=== PATIENT | male | born 1935 | race Caucasian/White ===

== ENCOUNTER 2020-05-05 09:07 | Emergency (ER) | payer MEDICARE, OTHER ==
[~2020-05-05] VITALS: Ht 167.6 cm; Wt 104.0 kg
[~2020-05-05 09:07] MED LIST: ACET325T9 PO; AMLO5TAB4 PO; BUSP5TAB PO; CHOL40003 PO; DIVA250T PO; LINE600T12 PO; OLAN10TA3 PO; VIT1TABL71 PO
--- NOTE | 2020-05-05 09:26 | PHYS DOC ---
Past Medical History Past Medical History: COPD Past Medical History schizophrenia Smoking Status: Light Tobacco Smoker Alcohol Use: None General Adult EDM: Chief Complaint: MECHANICAL FALL HPI: HPI: Patient is a 84 year old male who presents with a mechanical fall and right knee pain. Patient had a fall going down a ramp and lost his balance. Patient had injury to the right knee. Patient denies any head or having loss of consciousness. Patient describes mild pain in the left knee that is nonradiating worse with palpation. Patient did have a fall yesterday as well. Patient sent in from his living facility for 2 falls in the last day. Patient denies any fever, chills, vomiting, diarrhea or cough, shortness of breath or chest pain Review of Systems: Review of Systems: Constitutional: Denies fever or chills. [] Eyes: Denies change in visual acuity. [] HENT: Denies nasal congestion or sore throat. [] Respiratory: Denies cough or shortness of breath. [] Cardiovascular: Denies chest pain or edema. [] GI: Denies abdominal pain, nausea, vomiting, bloody stools or diarrhea. [] : Denies dysuria. [] Musculoskeletal: Denies back pain complains of right knee pain Integument: Denies rash. [] Neurologic: Denies headache, focal weakness or sensory changes. [] Endocrine: Denies polyuria or polydipsia. [] Lymphatic: Denies swollen glands. [] Psychiatric: Denies depression or anxiety. [] Heart Score: Risk Factors: Risk Factors: DM, Current or recent (<one month) smoker, HTN, HLP, family hi story of CAD, obesity. Risk Scores: Score 0 - 3: 2.5% MACE over next 6 weeks - Discharge Home Score 4 - 6: 20.3% MACE over next 6 weeks - Admit for Clinical Observation Score 7 - 10: 72.7% MACE over next 6 weeks - Early Invasive Strategies Allergies: Allergies: Allergies Coded Allergies Type Severity Reaction Last Updated Verified No Known Drug Allergies 11/29/19 No Physical Exam: PE: Constitutional: Well developed, well nourished, no acute distress, non-toxic appearance. [] HENT: Normocephalic, atraumatic, bilateral external ears normal, mucous membranes moist, no trismus, nose normal. [] Eyes: PERRLA, EOMI, conjunctiva normal, no discharge. [] Neck: Normal range of motion, no tenderness, supple, no stridor. [] Cardiovascular:Heart rate regular rhythm, peripheral pulses intact, cap refill brisk Lungs & Thorax: Bilateral breath sounds clear, no respiratory distress Abdomen: Bowel sounds normal, soft, no tenderness, no masses, no pulsatile masses. [] Skin: Warm, dry, no erythema, no rash. [] Back: No tenderness, no CVA tenderness. [] Extremities: Mild tenderness to the right knee no cyanosis, no clubbing, ROM intact, no edema. [] Neurologic: Alert and oriented X 3, normal motor function, normal sensory function, no focal deficits noted. [] Psychologic: Affect normal, judgement normal, mood normal. [] Current Patient Data: Labs: Laboratory Tests Test 05/05/20 09:40 White Blood Count 5.6 x10^3/uL Red Blood Count 4.25 x10^6/uL Hemoglobin 13.7 g/dL Hematocrit 40.3 % Mean Corpuscular Volume 95 fL Mean Corpuscular Hemoglobin 32 pg Mean Corpuscular Hemoglobin Concent 34 g/dL Red Cell Distribution Width 14.5 % Platelet Count 137 x10^3/uL Neutrophils (%) (Auto) 61 % Lymphocytes (%) (Auto) 24 % Monocytes (%) (Auto) 10 % Eosinophils (%) (Auto) 4 % Basophils (%) (Auto) 1 % Neutrophils # (Auto) 3.4 x10^3/uL Lymphocytes # (Auto) 1.3 x10^3/uL Monocytes # (Auto) 0.5 x10^3/uL Eosinophils # (Auto) 0.2 x10^3/uL Basophils # (Auto) 0.1 x10^3/uL Urine Collection Type Unknown Urine Color Yellow Urine Clarity Clear Urine pH 7.0 Urine Specific [place] 1.020 Urine Protein Negative mg/dL Urine Glucose (UA) Negative mg/dL Urine Ketones (Stick) Negative mg/dL Urine Blood Negative Urine Nitrite Negative Urine Bilirubin Negative Urine Urobilinogen Dipstick 1.0 mg/dL Urine Leukocyte Esterase Negative Urine RBC 3-5 /HPF Urine WBC 1-4 /HPF Urine Squamous Epithelial Cells Few /LPF Urine Amorphous Sediment Present /HPF Urine Bacteria 0 /HPF Urine Mucus Mod /LPF Sodium Level 145 mmol/L Potassium Level 4.1 mmol/L Chloride Level 108 mmol/L Carbon Dioxide Level 29 mmol/L Anion Gap 8 Blood Urea Nitrogen 18 mg/dL Creatinine 1.4 mg/dL Estimated GFR (Cockcroft-Gault) 48.3 Glucose Level 102 mg/dL Calcium Level 8.0 mg/dL Troponin I Quantitative < 0.017 ng/mL Vital Signs: Vital Signs Date Time Temp Pulse Resp B/P (MAP) Pulse Ox O2 Delivery O2 Flow Rate FiO2 05/05/20 10:42 68 94 05/05/20 09:42 78 93 05/05/20 09:16 98.0 94 20 138/80 (99) 98 Room Air 98.0 EKG: EKG: [] EKG interpreted by [facility] sinus rhythm with a rate of 70 left axis deviation normal intervals nonspecific ST changes Radiology/Procedures: Radiology/Procedures: [][facility] [address] [place] [address] IMAGING REPORT Signed PATIENT: JAZIEL CHEATHAM ACCOUNT: [id number] : 1935 LOCATION: ER AGE: 84 SEX: M EXAM STATUS: PRE ER ORD. PHYSICIAN: TANYA BENITEZ MD REASON: fall PROCEDURE: PORTABLE CHEST 1V EXAM: Chest, single view; pelvis and right hip, 3 views; right femur, 2 views; right knee, 2 views. HISTORY: Fall. Pain. COMPARISON: None. FINDINGS: Chest: A frontal view of the chest is obtained. There is right lower lobe interstitial opacity due to chronic interstitial change or interstitial infiltrate. There is no pneumothorax or pleural effusion. The heart is normal in size. There is a suspected hiatal hernia. There are chronic appearing inferior left lateral rib fractures. Pelvis and right hip: A frontal view of the pelvis and 2 views of right hip are obtained. There is no fracture, dislocation or subluxation. There is degenerative change involving the lumbar spine. Right knee and femur: 2 views of the right knee and femur are obtained. There is no fracture, dislocation or subluxation. There is no knee effusion. IMPRESSION: 1. No acute osseous finding. 2. Right lower lobe chronic interstitial changes or interstitial infiltrate. There is no consolidated pneumonia. 3. Chronic appearing inferior lateral left rib fractures. Electronically signed by: Enedelia Chao MD (05/05/2020 10:18 AM) [facility] DICTATED and SIGNED BY: ENEDELIA CHAO MD DATE: 05/05/20 1018 Course & Med Decision Making: Course & Med Decision Making Pertinent Labs and Imaging studies reviewed. (See chart for details) [] 84-year-old male with 2 mechanical falls. X-rays are negative for acute fracture. Blood work was done due to falls and make sure is no medical etiology. There is no significant abnormality noted on blood work. Patient has a possible infiltrate on x-ray evaluation shows pneumonia and treated indicates this may be chronic. I will put him on antibiotics just in case. Patient otherwise stable for discharge. Dragon Disclaimer: eBrevia Disclaimer: This electronic medical record was generated, in whole or in part, using a voice recognition dictation system. Departure Departure Impression: Primary Impression: Falls Additional Impression: Contusion of right knee Disposition: 01 HOME, SELF-CARE Condition: STABLE Referrals: PENELOPE WONG MD (PCP) 2-3 days Patient Instructions: Contusion Additional Instructions: EMERGENCY DEPARTMENT GENERAL DISCHARGE INSTRUCTIONS THANK YOU for coming to [facility] Emergency [facility] (ED) today and trusting us with your care. We trust that you had a positive experience in our Emergency Department. If you wish to speak to the department Management you can contact the department of natural resources officer at . YOUR FOLLOW UP INSTRUCTIONS ARE FOLLOWS: Do you have a private doctor? If you do not have a private doctor, please ask for a resource list of physicians or clinics that may be able to assist you with follow up care. The Emergency Physician has interpreted your x-rays. The X-ray specialist will also review them. If there is a change in the findings you will be notified in 48 hours when at all possible. A lab test or lab culture may have been done, your results will be reviewed and you will be notified if you need a change in treatment. ADDITIONAL INSTRUCTIONS AND INFORMATION Your care today has been supervised by a physician who is specially trained in emergency care. Many problems require more than one evaluation for a complete diagnosis and treatment. We recommend that you schedule your follow up appointment as recommended to ens ure complete treatment of your illness or injury. If you are unable to obtain follow up care and continue to have a problem, or if your condition worsens we recommend that you return to the ED. We are not able to safely determine your condition over the phone nor are we able to give sound medical advice over the phone. For these safety reasons, if you call for medical advice we will ask you to come to the ED for further evaluation If you have any questions regarding these discharge instructions please call the ED at . SAFETY INFORMATION In the interest of safety, wellness, and injury prevention; we encourage you to wear your seatbelt, if you smoke; quit smoking, and we encourage your family to use protective helmet for bicycling and other sporting events that present an increased risk for head injury. IF YOUR SYMPTOMS WORSEN OR NEW SYMPTOMS DEVELOP, OR YOU HAVE CONCERNS ABOUT YOUR CONDITION; OR IF YOUR CONDITION WORSENS WHILE YOU ARE WAITING FOR YOUR FOLLOW UP APPOINTMENT; EITHER CONTACT YOUR PRIMARY CARE DOCTOR, THE PHYSICIAN WHOSE NAME AND NUMBER YOU WERE GIVEN, OR RETURN TO THE ED IMMEDIATELY. Scripts Azithromycin (ZITHROMAX) 250 Mg Tablet 1 PKG PO UD, #6 TAB Prov: TANYA BENITEZ MD 05/05/20 Justicifation of Admission Dx: Justifications for Admission: Justification of Admission Dx: N/A TANYA BENITEZ MD May 05, 2020 09:26
[2020-05-05 10:05] LABS: BASO # 0.1 x10^3/uL (0.0-0.2); BASO % 1 % (0-3); EOS # 0.2 x10^3/uL (0.0-0.7); EOS % 4 % (0-3); HEMATOCRIT 40.3 % (39.0-53.0); HEMOGLOBIN 13.7 g/dL (13.0-17.5); LYMPH # 1.3 x10^3/uL (1.0-4.8); LYMPH % 24 % (24-48); MEAN CORPUSCULAR HEMOGLOBIN 32 pg (25-35); MEAN CORPUSCULAR HGB CONC 34 g/dL (31-37); MEAN CORPUSCULAR VOLUME 95 fL (79-100); MONO # 0.5 x10^3/uL (0.0-1.1); MONO % 10 % (0-9); NEUT # 3.4 x10^3/uL (1.8-7.7); NEUT % 61 % (31-73); PLATELET COUNT 137 x10^3/uL (140-400); RED BLOOD COUNT 4.25 x10^6/uL (4.30-5.70); RED CELL DISTRIBUTION WIDTH 14.5 % (11.5-14.5); WHITE BLOOD COUNT 5.6 x10^3/uL (4.0-11.0)
[2020-05-05 10:06] LABS: BILIRUBIN,URINE NEGATIVE (NEG); CLARITY,URINE CLEAR; COLOR,URINE YELLOW; NITRITE,URINE NEGATIVE (NEG); PROTEIN,URINE NEGATIVE (NEG-TRACE)
[2020-05-05 10:15] LABS: CREATININE 1.4 mg/dL (0.7-1.3); GFR 48.3; POTASSIUM 4.1 mmol/L (3.5-5.1)
--- NOTE | 2020-05-05 10:21 | RAD ---
EXAM: Chest, single view; pelvis and right hip, 3 views; right femur, 2 views; right knee, 2 views. HISTORY: Fall. Pain. COMPARISON: None. FINDINGS: Chest: A frontal view of the chest is obtained. There is right lower lobe interstitial opacity due to chronic interstitial change or interstitial infiltrate. There is no pneumothorax or pleural effusion. The heart is normal in size. There is a suspected hiatal hernia. There are chronic appearing inferior left lateral rib fractures. Pelvis and right hip: A frontal view of the pelvis and 2 views of right hip are obtained. There is no fracture, dislocation or subluxation. There is degenerative change involving the lumbar spine. Right knee and femur: 2 views of the right knee and femur are obtained. There is no fracture, dislocation or subluxation. There is no knee effusion. IMPRESSION: 1. No acute osseous finding. 2. Right lower lobe chronic interstitial changes or interstitial infiltrate. There is no consolidated pneumonia. 3. Chronic appearing inferior lateral left rib fractures. Electronically signed by: Enedelia Michael MD (05/05/2020 10:18 AM) [facility]
[2020-05-05 10:42] VITALS: BP 114/71
[2020-05-05 10:45] LABS: SQUAMOUS EPITHELIAL CELL,UR FEW /LPF
[2020-05-05 10:46] LABS: AMORPHOUS SEDIMENT,UR PRESENT /HPF; BACTERIA,URINE 0 /HPF (0-FEW)
[2020-05-05] MEDS ORDERED: AZIT250T PO (10:56)
--- NOTE | 2020-05-05 15:53 | EKG ---
[facility] [address] [place] [address] Test Date: 2020-05-05 Test Time: 09:55:06 Pat Name: JAZIEL CHEATHAM Department: Room: Gender: M [employer]: : 1935 Requested By: TANYA BENITEZ Order Number: [id number] Reading MD: Measurements Intervals [place]amond Rate: 70 P: 34 MN: 164 QRS: -24 QRSD: 118 T: 40 QT: 418 QTc: 454 Interpretive Statements SINUS RHYTHM LEFTWARD AXIS OTHERWISE NORMAL ECG RI6.02 No previous ECG available for comparison
== END 2020-05-05 12:21 | disposition home or self-care (01) ==
LOC: ER 09:07
DX: S80.01XA Contusion of right knee, initial encounter (principal); M25.551 Pain in right hip; M79.651 Pain in right thigh; J44.9 Chronic obstructive pulmonary disease, unspecified; F20.9 Schizophrenia, unspecified; Z87.891 Personal history of nicotine dependence; W18.39XA Other fall on same level, initial encounter; Y93.89 Activity, other specified; Y92.89 Other specified places as the place of occurrence of the external cause; Y99.8 Other external cause status
CPT/HCPCS: 36415; 71045; 73502; 73552; 73562; 80048; 81001; 84484; 85025; 93005; 99285; P9612